=== PATIENT | male | born 1965 | race Two or more races ===

== ENCOUNTER 2016-12-10 08:53 | Inpatient (IN) | payer MEDICAID ==
[~2016-12-10] VITALS: Ht 167.6 cm; Wt 95.0 kg
[2016-12-10] VITALS (21 sets, daily range): BP systolic 62–156; BP diastolic 31–82
[2016-12-10 10:21] LABS: DEFINITIVE VIEW TRANSMISSION; Hematocrit 30.1 % (41.0-53.0); Hemoglobin 10.6 g/dL (13.5-17.5); Mean Corpuscular Hemoglobin 29.3 pg (28.0-32.0); Mean Corpuscular Hgb Conc. 35.3 g/dL (32.0-36.0); Platelet Count (auto) 28 10^3/uL (140-450); Red Cell Distribution Width 15.2 % (11.6-16.0)
[2016-12-10 10:27] LABS: Metamyelocytes % 0; Myelocytes % 0; Promyelocytes % 0; Reactive Lymphocytes 0
[2016-12-10 10:30] LABS: Albumin 2.4 g/dL (3.4-5.0); Calcium 6.8 mg/dL (8.5-10.1)
[2016-12-10 10:32] LABS: BUN/Creatinine Ratio 8.6
[2016-12-10 10:37] LABS: Bilirubin, Total 0.8 mg/dL (0.2-1.0); Total Protein 7.1 g/dL (6.4-8.2)
[2016-12-10 10:40] LABS: Platelet Estimate Markedly Decreased
[2016-12-10 10:41] LABS: RBC Morphology Normal
[2016-12-10 10:44] LABS: Potassium 2.8 mmol/L (3.5-5.1)
[2016-12-10] MEDS ORDERED: POTASSIUM CHL 20 Meq TABLET PO ONE ×2 (10:45→13:30)
[2016-12-10] MEDS: POTASSIUM CHL 20MEQ/100ML 100 ML IV SCH ×2 (11:18→14:04)
[2016-12-10] MEDS ORDERED: POTASSIUM CHL 10% (20 MEQ/15ML) ORAL SOLN PO ONE (11:30)
[2016-12-10] MEDS ORDERED: DOPamine 1600MCG/ML 250 ML IV ONE (11:45)
[2016-12-10 11:55] LABS: Lactic Acid 2.3 mmol/L (0.4-2.0)
[2016-12-10] MEDS ORDERED: SODIUM CHLORIDE 0.9% 1,000 ML IV ONE ×2 (12:15→13:30)
[2016-12-10] MEDS ORDERED: VANCOMYCIN 1GM/250ML D5W 250 ML IV ONE (12:15)
[2016-12-10] MEDS ORDERED: SODIUM CHLORIDE 0.9% 2,000 ML IV ONE (12:15)
[2016-12-10 12:18] LABS: REFLEX LACTIC ACID YES OR NO YES
[2016-12-10] MEDS ORDERED: DEXTROSE (50%) 50ML SYRG IV PRN (13:15)
[2016-12-10] MEDS ORDERED: HYDROcodone-ACET 5/325MG TAB PO PRN (13:15)
[2016-12-10] MEDS ORDERED: ACETAMINOPHEN 500 MG TAB PO PRN (13:15)
[2016-12-10] MEDS ORDERED: TEMAZEPAM 15 MG CAP PO PRN (13:15)
[2016-12-10] MEDS ORDERED: LORazepam 0.5 MG TAB PO PRN (13:15)
[2016-12-10] MEDS ORDERED: ALBUTEROL SULF 2.5 MG/0.5ML(0.5%) NEB SOLN NEB PRN (13:15)
[2016-12-10] MEDS ORDERED: MORPHINE SULF INJ 2 MG/ML SYRINGE 1ML IV PRN ×2 (13:15)
[2016-12-10] MEDS ORDERED: PROMETHAZINE HCL 25 MG/ML 1ML IV PRN (13:15)
[2016-12-10] MEDS ORDERED: NITROGLYCERIN 0.4 MG SL TAB SL PRN (13:15)
[2016-12-10 13:19] LABS: Lactic Acid 3.6 mmol/L (0.4-2.0)
[2016-12-10] MEDS ORDERED: LEVOFLOXACIN 500MG 100 ML IV ONE (13:45)
[2016-12-10] MEDS ORDERED: PANTOPRAZOLE 40 MG TAB PO ONE (13:45)
[2016-12-10] MEDS ORDERED: LEVOFLOXACIN 250MG 50 ML IV SCH (13:45)
[2016-12-10 13:55] LABS: REFLEX LACTIC ACID YES OR NO YES
[2016-12-10] MEDS: CLINDAMYCIN 600MG IV 50 ML IV SCH ×2 (14:00→21:07)
[2016-12-10] MEDS ORDERED: BACTRIM 5MG/KG Q8HR PER RX 0 ML IV SCH (14:45)
[2016-12-10] MEDS ORDERED: methylPREDNISolone SOD SUCC 40 MG/ML VL IV ONE (14:45)
[2016-12-10 15:13] LABS: Partial Thromboplastin Time 36.1 sec (22.64-33.71)
[2016-12-10 15:14] LABS: INR 1.57 (0.9-1.15); Prothrombin Time 16.2 sec (9.37-12.3)
[2016-12-10] MEDS: metroNIDAZOLE 500MG/100ML 100 ML IV SCH ×2 (18:00→21:57)
[2016-12-10] MEDS ORDERED: SULFAMETH-TRIMETH 80/16MG-ML 20 ML in D5W 5% 500 ML IV SCH ×2 (18:11→21:00)
[2016-12-10] MEDS ORDERED: ACYCLOVIR 5MG/KG Q8HR PER RX 0 ML IV SCH (20:30)
[2016-12-10] MEDS ORDERED: SODIUM CHLORIDE 0.9% 1,000 ML IV SCH (20:30)
[2016-12-10] MEDS ORDERED: FLUCONAZOLE 200MG/100ML 100 ML IV ONE (20:30)
[2016-12-10] MEDS ORDERED: PIPERACILLIN-TAZOB 2.25GM 50 ML IV ONE (20:30)
[2016-12-10] MEDS: LINEZOLID 600MG/300ML 300 ML IV SCH (21:00)
[2016-12-10] MEDS ORDERED: ACYCLOVIR SOD IV SCH (22:00)
[2016-12-10] MEDS ORDERED: D5W 5% IV SCH (22:00)
[2016-12-10] MEDS ORDERED: methylPREDNISolone SOD SUCC 40 MG/ML VL IV SCH (22:00)
[2016-12-10] MEDS ORDERED: ETOMIDATE (2MG/ML) 20ML VIAL IV ONE (22:21)
[2016-12-10] MEDS ORDERED: SUCCINYLCHOLINE CHLORIDE 20 MG/ML 10ML VIAL IV ONE (22:22)
[2016-12-10] MEDS ORDERED: SODIUM BICARBONATE 8.4% INJ 50ML SYRINGE ONE (22:40)
[2016-12-10] MEDS ORDERED: SODIUM BICARBONATE 8.4 % INJ 50ML VIAL IV ONE ×2 (22:41→22:45)
[2016-12-10] MEDS ORDERED: D5W 5% 1,000 ML IV ONE (22:45)
[2016-12-10] MEDS ORDERED: MIDAZOLAM DRIP 100 mg/100mL NS 100 ML IV SCH (23:04)
[2016-12-10] MEDS ORDERED: MIDAZOLAM DRIP 100 mg/100mL NS 100 ML IV ONE (23:06)
[2016-12-10] MEDS ORDERED: NOREPINEPHRINE BITARTRATE 250 ML IV ONE (23:25)
[2016-12-11] VITALS (45 sets, daily range): BP systolic 71–163; BP diastolic 28–113
[2016-12-11] MEDS ORDERED: DOPamine 1600MCG/ML 250 ML IV ONE (01:07)
[2016-12-11] MEDS ORDERED: SODIUM BICARBONATE 8.4% INJ 50ML SYRINGE ONE ×2 (02:22→02:30)
[2016-12-11] MEDS ORDERED: NOREPINEPHRINE BITARTRATE 250 ML IV SCH (02:30)
[2016-12-11] MEDS ORDERED: SODIUM BICARBONATE 50ML VIAL 150 ML in D5W 5% 1,000 ML IV ONE (02:45)
[2016-12-11] MEDS ORDERED: SODIUM BICARBONATE 8.4 % INJ 50ML VIAL IV ONE (02:45)
[2016-12-11 04:11] LABS: DEFINITIVE VIEW TRANSMISSION; Hematocrit 29.6 % (41.0-53.0); Hemoglobin 9.9 g/dL (13.5-17.5); Mean Corpuscular Hemoglobin 29.1 pg (28.0-32.0); Mean Corpuscular Hgb Conc. 33.5 g/dL (32.0-36.0); Mean Corpuscular Volume 86.9 fL (80.0-100.0); Mean Platelet Volume 10.8 fL (7.4-10.4); Red Cell Distribution Width 14.5 % (11.6-16.0)
[2016-12-11 04:33] LABS: Albumin 1.5 g/dL (3.4-5.0); BUN/Creatinine Ratio 8.7; Bilirubin, Total 0.7 mg/dL (0.2-1.0); Calcium 6.1 mg/dL (8.5-10.1); Potassium 4.6 mmol/L (3.5-5.1); Total Protein 4.7 g/dL (6.4-8.2)
[2016-12-11 04:43] LABS: White Blood Cell 1.3 10^3/uL (4.4-10.8)
[2016-12-11 04:44] LABS: Platelet Count (auto) 5 10^3/uL (140-450)
[2016-12-11 04:45] LABS: Metamyelocytes % 0; Myelocytes % 0; Promyelocytes % 0; Reactive Lymphocytes 0
[2016-12-11] MEDS: CLINDAMYCIN 600MG IV 50 ML IV SCH ×2 (06:00→15:00)
[2016-12-11] MEDS ORDERED: PIPERACILLIN-TAZOB 2.25GM 50 ML IV SCH (06:00)
[2016-12-11 06:18] LABS: Anisocytosis Slight; Platelet Estimate Markedly Decreased
[2016-12-11 06:19] LABS: Ovalocytes FEW
[2016-12-11] MEDS: metroNIDAZOLE 500MG/100ML 100 ML IV SCH ×2 (07:30→14:22)
[2016-12-11] MEDS ORDERED: SODIUM BICARBONATE 50ML VIAL 150 ML in D5W 5% 1,000 ML IV SCH ×2 (07:30→12:35)
[2016-12-11] MEDS ORDERED: fentaNYL Drip 2500mCg/250mlNS 250 ML IV ONE (07:49)
[2016-12-11] MEDS ORDERED: PHENYLEPHRINE IV 250 ML IV ONE (08:04)
[2016-12-11] MEDS ORDERED: VASOPRESSIN 50 UNITS in SODIUM CHL 0.9% 247.5 ML IV SCH ×2 (08:30→16:30)
[2016-12-11] MEDS ORDERED: fentaNYL Drip 2500mCg/250mlNS 250 ML IV SCH (09:02)
[2016-12-11] MEDS ORDERED: PHENYLEPHRINE INJ 20 MG in SODIUM CHL 0.9% 250 ML IV SCH (09:15)
[2016-12-11] MEDS ORDERED: LEVOFLOXACIN 500MG 100 ML IV SCH (10:00)
[2016-12-11] MEDS ORDERED: PANTOPRAZOLE SODIUM 40 MG/10 ML VIAL IV SCH (10:00)
[2016-12-11] MEDS ORDERED: PANTOPRAZOLE 40 MG TAB PO SCH (10:00)
[2016-12-11] MEDS ORDERED: ACYCLOVIR SOD 50MG/ML 500 MG in D5W 5% 100 ML IV ONE (10:00)
[2016-12-11] MEDS: LINEZOLID 600MG/300ML 300 ML IV SCH (10:30)
[2016-12-11] MEDS ORDERED: AMIODARONE HCL 900 MG in DEXTROSE 500 ML IV SCH ×2 (11:26→17:26)
[2016-12-11] MEDS ORDERED: AMIODARONE HCL 150 MG in D5W 5% 100 ML IV ONE (11:30)
[2016-12-11] MEDS ORDERED: ALBUMIN 25% 100 ML IV ONE (11:30)
[2016-12-11] MEDS ORDERED: HYDROCORTISONE SOD SUCC 100 MG/2ML INJ VIAL IV SCH (12:00)
[2016-12-11] MEDS ORDERED: SODIUM CHLORIDE 0.9% 3,000 ML IV ONE (12:15)
[2016-12-11] MEDS ORDERED: FILGRASTIM 300 MCG INJ VIAL SC ONE (12:15)
[2016-12-11] MEDS ORDERED: TPN PER PHARMACY 0 ML IV SCH (12:15)
[2016-12-11] MEDS ORDERED: PHENYLEPHRINE INJ 40 MG in SODIUM CHL 0.9% 250 ML IV SCH (13:00)
[2016-12-11] MEDS ORDERED: NOREPINEPHRINE BITARTRATE 16 MG in D5W 5% 250 ML IV SCH (13:00)
[2016-12-11 13:11] LABS: Magnesium 2.7 mg/dL (1.6-2.6)
[2016-12-11] MEDS ORDERED: DEXTROSE (50%) 50ML SYRG IV SCH (13:45)
[2016-12-11] MEDS ORDERED: LEVOFLOXACIN 250MG 50 ML IV SCH (13:45)
[2016-12-11 15:12] LABS: Urine Bilirubin Negative (Negative); Urine Color Red (Yellow); Urine Glucose Normal (Normal); Urine Ketone Negative (Negative); Urine Nitrite Negative (Negative); Urine RBC 36 /hpf (0 - 3); Urine Urobilinogen Normal (Negative)
[2016-12-11 15:13] LABS: Urine Blood 3+ /uL (Negative)
[2016-12-11] MEDS ORDERED: VASOPRESSIN 20 UNIT/ML ONE (15:48)
[2016-12-11] MEDS ORDERED: EPINEPHrine HCL 250 ML IV ONE (16:09)
[2016-12-11] MEDS ORDERED: EPINEPHrine HCL INJECTION 4 MG in D5W 5% 250 ML IV SCH (16:30)
[2016-12-11] MEDS ORDERED: InsuLIN REG 1unit/0.01ml Soln (100units/ml) SC SCH (18:00)
[2016-12-11] MEDS ORDERED: ACCU-CHEK COMFORT CURVE STRIP VI SCH (18:00)
[2016-12-11] MEDS ORDERED: CLINIMIX PER PHARMACY IV NR ×6 (20:00)
[2016-12-11] MEDS ORDERED: EPINEPHrine HCL 1 MG/10 ML SYRG IV ONE (20:49)
[2016-12-11] MEDS ORDERED: SODIUM BICARBONATE 8.4% INJ 50ML SYRINGE IV ONE (20:49)
[2016-12-11] MEDS ORDERED: FLUCONAZOLE 200MG/100ML 100 ML IV SCH (21:00)
[2016-12-12] MEDS ORDERED: FILGRASTIM 300 MCG INJ VIAL SC SCH (10:00)
[2016-12-12] MEDS ORDERED: LEVOFLOXACIN 250MG 50 ML IV SCH (14:30)
== END 2016-12-11 20:50 | disposition expired | DRG 720 ==
LOC: EDBD 08:53 → ER 08:57 → TELE 08:58 → ICU WEST 15:17
PROVIDERS: ADMIT Internal Medicine; ATTEND Internal Medicine
PROC: 5A1935Z Respiratory Ventilation, Less than 24 Consecutive Hours (ICD-10-PCS; principal; 2016-12-10)
PROC: 0BH17EZ Insertion of Endotracheal Airway into Trachea, Via Natural or Artificial Opening (ICD-10-PCS; 2016-12-10)
PROC: 05HN33Z Insertion of Infusion Device into Left Internal Jugular Vein, Percutaneous Approach (ICD-10-PCS; 2016-12-11)
PROC: B544ZZA Ultrasonography of Left Jugular Veins, Guidance (ICD-10-PCS; 2016-12-11)
PROC: 30233R1 Transfusion of Nonautologous Platelets into Peripheral Vein, Percutaneous Approach (ICD-10-PCS; 2016-12-11)
DX: A41.02 Sepsis due to Methicillin resistant Staphylococcus aureus (principal); J96.00 Acute respiratory failure, unspecified whether with hypoxia or hypercapnia; R65.21 Severe sepsis with septic shock; E43 Unspecified severe protein-calorie malnutrition; D61.818 Other pancytopenia; J18.9 Pneumonia, unspecified organism; N17.9 Acute kidney failure, unspecified; E86.0 Dehydration; C78.00 Secondary malignant neoplasm of unspecified lung; A04.7 Enterocolitis due to Clostridium difficile; M62.82 Rhabdomyolysis; E83.51 Hypocalcemia; E87.6 Hypokalemia; I95.9 Hypotension, unspecified; E87.1 Hypo-osmolality and hyponatremia; I48.91 Unspecified atrial fibrillation; Z92.21 Personal history of antineoplastic chemotherapy; Z86.718 Personal history of other venous thrombosis and embolism; Z85.47 Personal history of malignant neoplasm of testis; Z98.890 Other specified postprocedural states; Z88.7 Allergy status to serum and vaccine; Z68.33 Body mass index [BMI] 33.0-33.9, adult
CPT/HCPCS: 36415; 36600; 71010; 71250; 76775; 76942; 80053; 80061; 81001; 82105; 82150; 82270; 82378; 82550; 82805; 83036; 83605; 83690; 83735; 84100; 84443; 84484; 85007; 85027; 85045; 85048; 85610; 85730; 86141; 86850; 86900; 86901; 87040; 87045; 87070; 87077; 87081; 87086; 87177; 87186; 87205; 87493; 87899; 93005; 94002; 94003; 96361; 96365; 96367; 96368; 96375; 99291; C9113; J0171; J0330; J1442; J1450; J1956; J2543; J3010; J3480; J3490; J7060; J7131